=== PATIENT | female | born 1930 | race Caucasian/White ===

== ENCOUNTER → 2018-01-07 | Outpatient (CLI) | payer MEDICARE, OTHER ==
[~2018-01-07] MED LIST: ASPI-1471 PO; ASPI-879 PO; ASPI81TA94 PO; BIMA2.5D5 OP; BUTA1CAP36 PO; BUTA1CAP6 PO; BUTA1TAB14 PO; CHOL200038 PO; CLOT15CR64 TP; ESCI10TA8 PO; HCTZ25 PO; HYD200 PO; LEV75 PO; LEVO88TA45 PO; METH4TAB66 PO; METO1TAB PO; METO50TA19 PO; OLM20 PO; OMEP20CA68 PO; VALS80TA7 PO; [UNRECOGNIZED DRUG - CODE] OP
== END ==
LOC: LAB 08:47
PROVIDERS: ATTEND Otolaryngology
DX: J38.01 Paralysis of vocal cords and larynx, unilateral (principal); R13.14 Dysphagia, pharyngoesophageal phase
CPT/HCPCS: 36415; 82565

== ENCOUNTER → 2018-01-11 | Outpatient (CLI) | payer MEDICARE, OTHER ==
[~2018-01-11] MED LIST changes: +IOPAMIDOL 76% 75 ML INFUS BTL 75 ML ONE
--- NOTE | 2018-01-11 14:05 | RADIOLOGY IMAGING REPORT ---
FACILITY: [facility] PATIENT NAME: Elise Castro : 1930 MR: [id number] V: [id number] EXAM DATE: ORDERING PHYSICIAN: DELIA MEDINA TECHNOLOGIST: Location: [facility] [place] Patient: Elise Castro : 1930 Visit/Account:[id number] Date of Sevice: 01/11/2018 HEAD W W/O CONTRAST COMPARISONS: None. ADDITIONAL PERTINENT HISTORY: ] Local cord paralysis TECHNIQUE: Multiple axial images were obtained from the skull base to the vertex before and after th e IV administration of contrast. One of the following dose optimization techniques was utilized in t he performance of this exam: Automated exposure control; adjustment of the mA and/or kV according to the patient's size; or use of an iterative reconstruction technique. Specific details can be refere nced in the facility's radiology CT exam operational policy. CONTRAST: 75 ml of Isovue-370 FINDINGS: Midline shift: Negative Ventricles: Negative Brain parenchyma: Mild patchy hypoattenuation within the periventricular and subcortical white matte r, nonspecific but likely representing small vessel ischemic change on a chronic basis. Extra-axial spaces: Negative Pathologic enhancement: Negative Intracranial vasculature: Cavernous internal carotid artery calcifications. Otherwise negative Osseous structures: Negative Paranasal sinuses and mastoid air cells: Negative Surrounding soft tissues and orbits: Negative IMPRESSION: 1. Age related changes as described above. 2. No evidence of acute intracranial pathology. Report Dictated By: Ismael Schwartz MD at 01/11/2018 1:57 PM Report E-Signed By: Ismael Schwartz MD at 01/11/2018 2:01 PM WSN:[email or web address]
--- NOTE | 2018-01-11 14:29 | RADIOLOGY IMAGING REPORT ---
FACILITY: [facility] PATIENT NAME: Elise Castro : 1930 MR: [id number] V: [id number] EXAM DATE: ORDERING PHYSICIAN: DELIA MEDINA TECHNOLOGIST: Location: [facility] [place] Patient: Elise Castro : 1930 Visit/Account:[id number] Date of Sevice: 01/11/2018 CT neck with contrast Comparison: None Additional pertinent history: Vocal cord paralysis. TECHNIQUE: Multiple axial images were obtained from the mid portion of the brain through the superio r mediastinum with IV contrast. Coronal and sagittal reformatted images were obtained off the axial source data. One of the following dose optimization techniques was utilized in the performance of t his exam: Automated exposure control; adjustment of the mA and/or kV according to the patient's size; or use of an iterative reconstruction technique. Specific details can be referenced in the [facility]'s radiology CT exam operational policy. CONTRAST: 75 mL of Isovue-370 FINDINGS: Visualized portions of the brain parenchyma:Negative Parotid glands/submandibular glands/thyroid: Negative Orbits: Negative Paranasal sinuses: Negative Parapharyngeal spaces: Negative Nasopharynx/oropharynx/hypopharynx: Negative Tonsillar pillars: Negative Oral tongue/tongue base: Negative True and false cords: Negative Lymph node assessment:Negative Surrounding soft tissues: Negative Vasculature: Mild calcified atherosclerotic plaque involving the thoracic aortic arch. Osseous structures: Spondylitic change involving the cervical spine. Lung apices: Mild pleural-parenchymal changes involving both lung apices. IMPRESSION: 1. No acute process involving the neck. 2. Specifically no evidence of vocal cord paralysis on today's exam. Report Dictated By: Ismael Schwartz MD at 01/11/2018 2:06 PM Report E-Signed By: Ismael Schwartz MD at 01/11/2018 2:25 PM WSN:[email or web address]
== END ==
LOC: CT 01:26
PROVIDERS: ATTEND Otolaryngology
DX: I67.82 Cerebral ischemia (principal); I65.29 Occlusion and stenosis of unspecified carotid artery
CPT/HCPCS: 70470; 70491; Q9967

== ENCOUNTER → 2018-01-24 | Outpatient (CLI) | payer MEDICARE, OTHER ==
[~2018-01-24] MED LIST changes: -IOPAMIDOL 76% 75 ML INFUS BTL 75 ML ONE
== END ==
LOC: AUD 11:30
PROVIDERS: ATTEND Otolaryngology
DX: H90.3 Sensorineural hearing loss, bilateral (principal)
CPT/HCPCS: 92557; 92570

== ENCOUNTER 2018-02-03 13:45 | Outpatient (RCR) | payer MEDICARE, OTHER ==
--- NOTE | 2018-01-17 19:39 | SPEECH INITIAL EVALUATION ---
VOCAL PRODUCTION EVALUATION REPORT NAME: Elise Castro EVALUATION DATE: 01-17-18 DATE OF : 1930, 87 years DIAGNOSIS: R Vocal Fold Paralysis EXAMINER: Angelic Sigala MS, [facility]-FINANCIAL SERVICES DIRECTOR, Nubia Rocha PHYSICIAN: Dr. Cedric Alvarado MD History The patient is an 87 year old woman who was diagnosed with right vocal fold paralysis. The patients medical history is also consistent with laryngitis, GERD, and generalized anxiety disorder. The patient suffered a severe case of laryngitis approximately 1 year ago. She reports she was completely aphonic for approximately 1 week with vocal quality then gradually improving. However, she reports vocal quality has never entirely returned to PLOF. A ST evaluation was ordered to assess the function and quality her vocal performance. Evaluation Results Breath Support: Patient reports reduced lung capacity following a surgery that she had for scoliosis during her childhood. Breath support was adequate for all vocal tasks requested during the evaluation. Pt was visibly out of breath following the max phonation and s/z tasks but quickly recovered. Maximum Phonation Time: WNL (15-25 seconds for adult females)- Average of 21.3 seconds s/z ratio: 1 (s=20.3, z=20.3) No vocal dysfunction indicated. Pitch: Pt participated in tasks that included pitch variation. Pitch variation was adequate w/ audible variation between low, medium and high pitch. Hoarseness and aphonic breaks were present throughout the task, though a reduction in vocal hoarseness was achieved during high pitch. Vocal Quality: Vocal quality was hoarse. Low pitch results in increased hoarseness. The patient reported that her vocal quality becomes worse throughout the day, especially with increased vocal use. Self-Perceptual Measures and Functional Communication Voice Handicap Index (VHI) During the evaluation, the patient completed a VHI that is based on a 4pt scale to indicate vocal changes and the effects of these changes on ones life. The VHI is composed of three categories; physical, functional, and emotional. A score of 18 or more reflects a significant impact on quality of life. Results: Physical= 18 Functional=18 Emotional=17 Total score=53 On a scale of Normal to Severe, the patient scored as moderate. The patients voice became hoarser as the evaluation progressed. She reported that her hearing loss decreases her ability to trial court judge her vocal function. She reported that she tries to limit speaking, especially on the telephone. Perceptual Vocal Quality Scale: This numeric scales is based on the engine designer clinical judgement of the patients vocal quality. The clinician rates the patients vocal quality on a scale of 0-100 (0=no deficits, 100 = severe deficits). Vocal quality is judged by the following 6 features: Overall Quality 67/100; Hoarseness 63/100, Breathiness 3/100, Pitch 15/100, Intensity 17 /100; Tension/Strain 10/100 Dysphagia: The patient reported occasional coughing with thin liquid. She has no other s/s of dysphagia. The patient has no hx of pneumonia. Risk of aspiration in increased 2nd to vocal fold dysfunction. SUMMARY The patient presents with a moderate voice disorder as judged by patient and ST perception. The VHI indicated a total score of 53, placing the patient in a moderate range (31-60) for overall severity of vocal deficit. The ST completed a perceptual vocal quality scale at the beginning of the voice evaluation and judged that the patients overall severity to be 67/100, with the prominent feature being hoarseness. The patient completed maximum phonation time and s/z measures and both were WNL. The patient reported that she limits speaking on the telephone and experiences some difficulty with projecting her voice. She also reported that she has withdrawn from some of her community activities because of her voice. The patient is an ideal candidate for vocal therapy based on a program of voice exercise for vocal fold dysfunction. An individualized program and home program will be established and trained. Written informational handouts will be provided. Prognosis for improvement is excellent based on patient motivation and stimulability. Recommendations 2wk8 [facility] Short Term Goals 1. Pt will self report a change of 18 points or more on the total score of the Voice Handicap Scale 2. Pt will demonstrate independence with voice exercise program daily for vocal fold dysfunction including techniques to improve vocal fold adduction for functional voice. 3. Pt will demonstrate decreased scores on each measure of the Perceptual Vocal Quality Scale to at or below 15/100 (average of mild). Ear Muff Assembler Goal Pt will demonstrate functional vocal production and overall quality of voice during all IADLs. Thank you for this referral. Please call [phone] to contact . Angelic Sigala M.S., [facility] DIRECTOR; Tish Boland, [facility] [place] Signature Date MTDD
--- NOTE | 2018-01-26 09:20 | SWALLOW EVALUATION ---
DYSPHAGIA EVALUATION REPORT NAME: Elise Castro EVALUATION DATE: 01-25-18 DATE OF : 1930, 87 years DIAGNOSIS: R Vocal Fold Paralysis with Pharyngeal Dysphagia EXAMINER: Angelic Sigala MS, [facility]-DESIGN ENGINEERING INTERN, Nubia Rocha PHYSICIAN: Dr. Cedric Alvarado MD History The patient is an 87 year old woman who was diagnosed with right vocal fold paralysis. The patients medical history is also consistent with laryngitis, GERD, and generalized anxiety disorder. The patient suffered a severe case of laryngitis approximately 1 year ago. She reports she was completely aphonic for approximately 1 week with vocal quality then gradually improving. However, she reports vocal quality has never entirely returned to PLOF and she has since been diagnosed with R side vocal fold paralysis resulting in mild s/s of pharyngeal stage dysphagia including coughing/choking with liquids and increased risk of aspiration . An ST evaluation was ordered to assess the swallow structure and function. A voice evaluation was previously completed, however, the patient and her physician feel dysphagia tx is a priority at this time. PREVIOUS LEVEL OF FUNCTION: Primary Medical Diagnosis: R side vocal fold paralysis Pain Scale (0-10): 0 with swallow LOC / Participation: alert cooperative Follows instructions: yes Orientation: oriented to person, place, time, situation Functional Communication Deficits impact swallow function/safety, or response to therapy: No VOICE Vocal Deficits: Yes Changes to vocal quality: Yes, hoarse, intermittently aphonic DYSPHAGIA Dysphagia Risk Evaluation Protocol DREP: Water Swallow Test: Fail , Puree Swallow Test: Pass, Solids Swallow Test: Pass Functional Oral Intake Scale (FOIS): Level 6: Total oral intake with no special preparation, but must take precautions with liquids to reduce risk of aspiration. Sialorrhea: Yes Xerostomia: No Supplemental Oxygen Use: No Oral Structure and Function: Labial weakness with reduced lip seal. Occasional anterior loss of liquids/saliva Pain with Swallow: Denies Respiratory/Swallow Coordination: Typically patterned (ie. exhale/swallow/ exhale) Oral Stage Oral Stage Dysphagia: mild dysphagia. Labial weakness with reduced lip seal. Occasional anterior loss of liquids/saliva Self Feeds: Yes Pharyngeal Stage Pharyngeal Stage Dysphagia: mild dysphagia. Occasional cough/choke with liquids. Increased risk of aspiration. Compensatory Maneuvers Used: reduce rate and bolus size, increased awareness of swallow, effortful swallow Esophageal Stage Esophageal Stage Dysphagia Indicated: Yes. Patient has GERD ST ASSESSMENT SUMMARY Dysphagia Risk Evaluation Protocol DREP: Water Swallow Test: Fail, Puree Swallow Test: Pass, Solids Swallow Test: Pass Functional Oral Intake Scale (FOIS): Level 6: Total oral intake with no special preparation, but must take precautions with liquids to reduce risk of aspiration. The patient presents with a dx of R side vocal fold paralysis and s/s of mild pharyngeal stage dysphagia including coughing/choking with liquids and an increased risk of aspiration. Aspiration Risk: Aspiration Risk: Increased 2nd to vocal fold paralysis RECOMMENDATIONS 1. Compensatory Techniques: self monitor rate of intake, small liquid bolus, self monitor for fatigue 2. Speech Therapy: the patient would benefit from ST 2x/wk with additional home program to address the above described concerns. 3. MBS to further assess swallow function to aide in compensatory technique recommendations as well as any necessary diet modifications. PLAN OF CARE Short Term Goals 1. The patient will participate in an 8wk dysphagia exercise based dysphagia therapy program to address pharyngeal dysphagia 2. Patient will receive education regarding safe swallow precautions and compensatory techniques and demonstrate independence with techniques 3. The patient will receive and MBS to further assess swallow function and aspiration risk. [place] Goals: Senior Living Goals 1. The patient will demonstrate decreased risk for aspiration Patient Goals: Reduce risk of aspiration Rehabilitation Prognosis: Good. Thank you for this referral. Please call [phone] Angelic Sigala M.S., [facility]-DESIGN ENGINEERING INTERN; Tish Boland, [facility] [place] Physician Signature Date MTDD
[2018-02-14] MEDS ORDERED: OLM20 PO (16:52)
[2018-02-21] MEDS ORDERED: ASPI-757 PO (11:59)
[2018-02-21] MEDS ORDERED: ASPI81TA94 PO (11:59)
== END 2018-02-03 18:00 | disposition home or self-care (01) ==
LOC: ST 13:45
PROVIDERS: ATTEND Otolaryngology
DX: J38.01 Paralysis of vocal cords and larynx, unilateral (principal); R13.10 Dysphagia, unspecified; K21.0 Gastro-esophageal reflux disease with esophagitis; R49.9 Unspecified voice and resonance disorder
CPT/HCPCS: 92524

== ENCOUNTER → 2018-02-16 | Outpatient (CLI) | payer MEDICARE, OTHER ==
[2018-02-16 15:24] LABS: PLATELET COUNT, AUTOMATED 222 K/uL (150-450)
--- NOTE | 2018-02-16 15:24 | EKG ---
FACILITY: PATIENT NAME: NELIDA COHEN : [id number] MR: [id number] V: [id number] EXAM DATE: ORDERING PHYSICIAN: SANDEEP PINEDA TECHNOLOGIST: TIKA Test Reason : PRE OP Blood Pressure : / mmHG Vent. Rate : 063 BPM Atrial Rate : 063 BPM P-R Int : 202 ms QRS Dur : 092 ms QT Int : 410 ms P-R-T Axes : 017 032 054 degrees QTc Int : 419 ms Normal sinus rhythm Voltage criteria for left ventricular hypertrophy Abnormal ECG No previous ECGs available Referred By: MIRIAM Confirmed By:
== END ==
LOC: LAB 14:55
PROVIDERS: ATTEND Internal Medicine
DX: Z01.818 Encounter for other preprocedural examination (principal); I51.7 Cardiomegaly; R94.31 Abnormal electrocardiogram [ECG] [EKG]; F41.1 Generalized anxiety disorder; E03.9 Hypothyroidism, unspecified; I10 Essential (primary) hypertension; R73.9 Hyperglycemia, unspecified
CPT/HCPCS: 36415; 82040; 82247; 82310; 82374; 82435; 82565; 82947; 84075; 84132; 84155; 84295; 84443; 84450; 84460; 84520; 85025

== ENCOUNTER 2018-02-28 02:30 | Day surgery (SDC) | payer MEDICARE, OTHER ==
[~2018-02-28] VITALS: Ht 162.6 cm; Wt 49.9 kg
[~2018-02-28 02:30] MED LIST changes: +ASPI-757 PO
[2018-02-28 08:36] VITALS: BP 159/86
[2018-02-28] MEDS ORDERED: FAMOTIDINE 20 MG TAB PO ONE (08:45)
[2018-02-28] MEDS ORDERED: MIDAZOLAM 2 MG/2 ML VIAL IVP PRN (08:45)
[2018-02-28] MEDS ORDERED: NORMOSOL R SOLN(*) 1000 ML BAG 1,000 ML IV PRN (08:45)
[2018-02-28] MEDS ORDERED: LIDOCAINE/SOD BICARB 8.4% SYR ID ONE (08:45)
[2018-02-28] MEDS ORDERED: BACITRACIN OINT 0.9 GM PKT TP ONE (09:55)
[2018-02-28 11:15] VITALS: BP 116/89
[2018-02-28 11:45] VITALS: BP 125/67
[2018-02-28 12:15] VITALS: BP 138/70
[2018-02-28 12:16] VITALS: BP 112/91
--- NOTE | 2018-03-01 11:21 | OPERATIVE REPORT 1 ---
EVENT DATE: February 28, 2018 SURGEON: Cedric Alvarado MD ANESTHESIOLOGIST: Zack Saravia MD ANESTHESIA: General endotracheal. PROCEDURE Direct laryngoscopy with right vocal fold injection medialization with Prolaryn Plus. PREOPERATIVE DIAGNOSES Right vocal fold paralysis. POSTOPERATIVE DIAGNOSES Right vocal fold paralysis. INDICATIONS Please refer to the preoperative note. DESCRIPTION OF PROCEDURE The patient was positively identified in the preoperative area. She was accompanied there by her son. Risks were again explained, including but not limited to, injury to her dentition, lips, oral cavity, pharynx, larynx, persistent dysphonia and/or dysphagia, airway compromise and those associated with anesthesia. She acknowledged understanding of those risks. She was then brought back to the operative suite, laid supine on the operative table and anesthesia was administered. Once asleep, the patient was positioned, then prepped and draped in usual sterile fashion. A mouth guard was placed over the patient's maxillary dentition. A Dedo direct laryngoscope was carefully introduced in the patient's oral cavity and advanced to the level of the larynx. The right vocal fold was visualized. Approximately 0.5 mL of Prolaryn Plus was injected lateral to the vocal process with visual medialization of the fold. The patient was then turned to anesthesia for emergence. ESTIMATED BLOOD LOSS Negligible. COMPLICATIONS No complications. MTDD
== END 2018-02-28 11:15 | disposition home or self-care (01) ==
LOC: OR 02:30
PROVIDERS: ATTEND Otolaryngology
DX: J38.01 Paralysis of vocal cords and larynx, unilateral (principal)
CPT/HCPCS: 31570; A9270; C9399

== ENCOUNTER → 2018-03-18 | Outpatient (CLI) | payer MEDICARE, OTHER ==
[2018-03-18 09:09] LABS: PLATELET COUNT, AUTOMATED 219 K/uL (150-450)
== END ==
LOC: LAB 07:59
PROVIDERS: ATTEND Internal Medicine
DX: I10 Essential (primary) hypertension (principal); F41.1 Generalized anxiety disorder; E03.9 Hypothyroidism, unspecified; R73.9 Hyperglycemia, unspecified
CPT/HCPCS: 36415; 81001; 82040; 82247; 82310; 82374; 82435; 82465; 82565; 82947; 83036; 83718; 84075; 84132; 84155; 84295; 84443; 84450; 84460; 84478; 84520; 85025

== ENCOUNTER → 2018-09-22 | Outpatient (CLI) | payer MEDICARE, OTHER ==
[~2018-09-22] MED LIST changes: -VALS80TA7 PO; +VALS80TA8 PO
[2018-09-22 10:35] LABS: PLATELET COUNT, AUTOMATED 215 K/uL (150-450)
== END ==
LOC: LAB 10:03
PROVIDERS: ATTEND Internal Medicine
DX: I10 Essential (primary) hypertension (principal); E03.9 Hypothyroidism, unspecified; E83.52 Hypercalcemia
CPT/HCPCS: 36415; 82040; 82247; 82310; 82330; 82374; 82435; 82565; 82652; 82947; 83970; 84075; 84132; 84155; 84295; 84443; 84450; 84460; 84520; 85025

== ENCOUNTER → 2018-10-12 | Outpatient (CLI) | payer MEDICARE, OTHER ==
--- NOTE | 2018-10-13 09:27 | RADIOLOGY IMAGING REPORT ---
FACILITY: [facility] [place] PATIENT NAME: NELIDA COHEN : [id number] MR: [id number] V: [id number] EXAM DATE: [id number] ORDERING PHYSICIAN: SANDEEP PINEDA TECHNOLOGIST: Anca Flowers PROCEDURE:BILATERAL DIGITAL SCREENING MAMMOGRAM WITH CAD ASSISTED INTERPRETATION & 3D TOMOSYNTHESIS COMPARISON:Prior mammograms 09/14/17, 12/23/16, 06/08/16, 06/05/15, 05/10/14, 02/21/13. INDICATIONS:SCREENING FINDINGS: The study is somewhat limited due to patient's severe scoliosis. Moderately dense fibroglandular tissue is seen throughout the breasts. Of the visualized breast tissue the parenchymal pattern has remained stable. There is no evidence of malignant appearing mass, malignant appearing calcifications or other secondary sign of malignancy in either breast. DIAGNOSTIC CATEGORY 1--NEGATIVE. RECOMMENDATIONS: ROUTINE MAMMOGRAM AND CLINICAL EVALUATION. IMPRESSION: BIRADS 1: Negative. No significant abnormality is seen however the images are limited due to patient's severe scoliosis. Dictated by: Winifred Mcpherson M.D. on 10/12/2018 at 16:48 Transcribed by: BERLIN on 10/13/2018 at 8:32 Approved by: Winifred Mcpherson M.D. on 10/13/2018 at 9:26 [facility]
== END ==
LOC: MAMO 00:55
PROVIDERS: ATTEND Internal Medicine
DX: Z12.31 Encounter for screening mammogram for malignant neoplasm of breast (principal)
CPT/HCPCS: 77063; 77067

== ENCOUNTER → 2019-03-06 | Outpatient (CLI) | payer MEDICARE, OTHER | LOC: AUD 09:30 | PROVIDERS: ATTEND Otolaryngology | DX: H91.90 Unspecified hearing loss, unspecified ear (principal) | CPT/HCPCS: 92552 ==

== ENCOUNTER → 2019-03-07 | Outpatient (CLI) | payer MEDICARE, OTHER ==
[2019-03-07 08:02] LABS: PLATELET COUNT, AUTOMATED 219 K/uL (150-450)
== END ==
LOC: LAB 07:40
PROVIDERS: ATTEND Internal Medicine
DX: Z00.00 Encounter for general adult medical examination without abnormal findings (principal); E03.9 Hypothyroidism, unspecified; I10 Essential (primary) hypertension; R73.9 Hyperglycemia, unspecified; K21.9 Gastro-esophageal reflux disease without esophagitis
CPT/HCPCS: 36415; 81001; 82040; 82247; 82310; 82374; 82435; 82465; 82565; 82947; 83036; 83718; 84075; 84132; 84155; 84295; 84443; 84450; 84460; 84478; 84520; 85025